=== PATIENT | female | born 1995 | race Hispanic/Latino ===

== ENCOUNTER 2018-05-27 13:51 | Day surgery (SDC) | payer OTHER ==
[2018-05-27 14:26] VITALS: BMI 46.6
--- NOTE | 2018-05-27 15:58 | PDOC.FPROB ---
FMR OB H&P: HPI - History of Present Illness Chief Complaint: abdominal pain History of Present Illness: This is a 22 yo F @ 23.6wks by LMP/12.6wk sono, presenting with a CC of abdominal pain and decreased FM. The patient noted abdominal pain around 2300. The pain was sharp in nature in the midepigastrium and moved diffusely. The patient notes that the pain lasted about 10-15 min and there was only one episode. The patient began noticing decreased movement around that time. She does endorse movements on exam currently. She denies vision changes, headache, NVD, increased LLE, CTX, chest pain, or SOB. FMR OB H&P: Current - Care : 2 Para: 1 Gestational age: 23.6 - OB Labs Blood type: O RH: positive Antibody Screen: negative HIV: negative RPR: negative HepBsAg: negative Rubella: non-immune Gonorrhea: negative Chlamydia: negative GBS: unknown FMR OB H&P: History - Past Medical History PMH: obesity - Social History Social History: Denies alcohol, tobacco or drug use FMR OB H&P: Medications - Current Home Medications: Medication Instructions Recorded Confirmed Type Pnv No.95/Ferrous Fum/Folic AC 1 tab PO DAILY 05/27/18 05/27/18 History [ Tablet] Allergies/Adverse Reactions: Allergies Allergy/AdvReac Type Severity Reaction Status Date / Time No Known Allergies Allergy Verified 05/27/18 14:21 FMR OB H&P: ROS - Review of Systems General: denies: fever/chills, weight/appetite/sleep changes, night sweats, fatigue Eyes: denies: eye pain, vision changes, double vision, scotomas, floaters ENT: denies: nasal congestion, rhinorrhea Cardiovascular: denies: chest pain, palpitation, edema Respiratory: denies: cough, congestion, shortness of breath Gastrointestinal: reports: abdominal pain. denies: bloating, cramping, nausea, vomiting, diarrhea, constipation Genitourinary (Female): denies: incontinence, dysuria, hematuria Musculoskeletal: denies: pain, stiffness, tenderness Integumentary: denies: itching, rash, lesions FMR OB H&P: Vital Signs - Heart Tones Baseline: 120 FMR OB H&P: Physical Exam - Physical Exam General: NAD, awake, alert and oriented HEENT: normocephalic and atraumatic, PERRLA, EOMI, MMM, grossly normal vision, grossly normal hearing Neck: supple, FROM Chest: non-tender to palpation Heart: RRR, normal S1/S2, no murmurs/rubs/gallops General: CTAB Abdomen: gravid Musculoskeletal: normal gait and station, pulses present, FROM in all four extremities Skin: no rash Psychiatric: normal mood and affect FMR OB H&P: A/P - Problem List (1) Abdominal pain Status: Acute Code(s): R10.9 - UNSPECIFIED ABDOMINAL PAIN (2) Intrauterine Status: Acute Code(s): Z34.90 - ENCNTR FOR SUPRVSN OF NORMAL , UNSP, UNSP TRIMESTER Disposition: This is a 22 yo @ 23.6wks by LMP/12.6wk sono presenting with abdominal pain. Abdominal Pain - likely 2/2 to musculoskelatal pain - afebrile, not associated with food, no NVD, NTTP, no burning with urination - pain has completely resolved IUP - FM (+) - reactive NST - anatomy scan 5 days ago that showed no concerns but unable to completely visualize all structures; will f/u with [facility] for anatomy scan - Speculum exam difficult to visualize cervix due to body habitus, no pooling of fluid DISPO: Patient will be discharged as NST was reassuring and patient's pain has completely resolved and not returned . Return precautions were discussed including return of abdominal pain, LOF, dec. FM, CTX. All questions asked and answered. Case discussed with Dr. Moran Discussion: Date/Time: 05/27/18 9356 This H&P was discussed with [] and [] who agree with the above documentation and plan. Attending Addendum - Attending Addendum Date/Time: 05/28/18 1052 I personally evaluated the patient and discussed the management with Dr. Shukla/ Jhonny I agree with the History, Examination, Assessment and Plan documented above with any addition or exceptions noted below- 22 yo @ 23 6/7 weeks presented with brief episode of LUQ pain. Lasted 10-15 minutes and stopped. Described as sharp. (+) FM. Denies any LOF. Afebrile VSS. A/P: 1) [place] musculoskeletal pain- now resolved. FHTs 150s. No contractions. D/c home. F/U as scheduled.
== END 2018-05-27 15:57 | disposition home or self-care (01) ==
LOC: L&D/OP 13:51
PROVIDERS: ATTEND Family Medicine
DX: O99.89 Other specified diseases and conditions complicating pregnancy, childbirth and the puerperium (principal); R10.13 Epigastric pain; O36.8120 Decreased fetal movements, second trimester, not applicable or unspecified; Z79.899 Other long term (current) drug therapy; Z3A.23 23 weeks gestation of pregnancy

== ENCOUNTER 2018-07-13 16:31 | Day surgery (SDC) | payer OTHER ==
[2018-07-13 17:10] VITALS: BMI 46.6
[2018-07-13 18:47] LABS: Amnisure Test No Membranes Rupture (No Rupture)
[2018-07-13 18:48] LABS: Amnisure Internal Control QC ACCEPTABLE (ACCEPTABLE)
--- NOTE | 2018-07-13 19:12 | PDOC.FPROB ---
FMR OB H&P: HPI - History of Present Illness Chief Complaint: Decreased movement Indentification: 22 year old History of Present Illness: 22 year old at 30.3 wks presents with decreased movement. Patient states she has only felt baby move about 3 times since this morning. She also endorses leaking of clear fluid that she has noted on her panties each time she uses the restroom since 7:00 PM yesterday. She states that it is not associated with discharge or vaginal bleeding. She denies contractions or gush of fluid. Patient denies headache, RUQ pain, scotomas, or edema. Primary Care Physician: DARRELL Herrera FMR OB H&P: Current - Care : 3 Para: 1011 Gestational age: 30.3 wks Due date: 09/18/2018 Dating Criteria: LMP/12.6 wk sono - OB Labs Blood type: O RH: positive Antibody Screen: negative HIV: negative RPR: negative HepBsAg: negative Rubella: non-immune Gonorrhea: negative Chlamydia: negative Pap Smear: LSIL 1 hour gtt: 188 GBS: unknown FMR OB H&P: History - Past Medical History PMH: None - OB History OB History: Failed 1h GTT, has not done 3h GTT yet - Surgical History Sx History: None - Social History Social History: Denies alcohol, tobacco, or drug use - Family History Family History: Noncontributory FMR OB H&P: Medications - Current Home Medications: Medication Instructions Recorded Confirmed Type Pnv No.95/Ferrous Fum/Folic AC 1 tab PO DAILY 05/27/18 07/13/18 History [ Tablet] metroNIDAZOLE [Flagyl] 500 mg PO Q12HR 7 Days #14 tab 07/13/18 Rx Allergies/Adverse Reactions: Allergies Allergy/AdvReac Type Severity Reaction Status Date / Time No Known Allergies Allergy Verified 07/13/18 17:12 FMR OB H&P: ROS - Review of Systems General: denies: fever/chills, fatigue Eyes: denies: vision changes, scotomas ENT: denies: nasal congestion, rhinorrhea, sore throat Cardiovascular: denies: chest pain, palpitation, edema Respiratory: denies: cough, congestion, shortness of breath Gastrointestinal: denies: abdominal pain, nausea, vomiting, diarrhea, constipation Genitourinary (Female): reports: polyuria. denies: dysuria, vaginal discharge, vaginal pain, vaginal bleeding, contractions, vaginal pressure Musculoskeletal: denies: pain Neurologic: denies: numbness, seizures, weakness, loss of counsciousness Hematologic/Lymphatic: denies: prolonged or excessive bleeding Psychological: denies: depression, anxiety FMR OB H&P: Vital Signs - Heart Tones Baseline: 130 Variability: moderate Acceleration: present Deceleration: absent Category: category 1 [place] contractions every: None FMR OB H&P: Physical Exam - Physical Exam General: NAD, awake, alert and oriented HEENT: MMM, grossly normal vision, grossly normal hearing Neck: supple Heart: pulses present, no edema General: no respiratory distress, no retractions Abdomen: soft, gravid, non-tender Musculoskeletal: normal gait and station, pulses present Neurological: no tremor, no focal deficit Skin: no rash, capillary refill <2 seconds Lymphatic: no unusual bruising or bleeding Psychiatric: intact recent and remote memory, good judgement and insight, normal mood and affect - Pelvic Exam Vulva: no masses, no lesions, no discharge, no blood, normal rugae Cervix: no masses, no lesions, no blood Deviation from normal: No pooling of fluid, white vaginal discharge noted in vaginal canal SVE: Closed/thick/high FMR OB H&P: Results - Labs Lab results: Laboratory Results - last 24 hr 07/13/18 18:24 Amnio Swab Test No Membranes Rupture FMR OB H&P: A/P - Problem List (1) Decreased movement Status: Acute Code(s): O36.8190 - DECREASED MOVEMENTS, UNSP TRIMESTER, UNSP Qualifiers: Trimester: third trimester (2) Intrauterine Status: Acute Code(s): Z34.90 - ENCNTR FOR SUPRVSN OF NORMAL , UNSP, UNSP TRIMESTER Assessment and Plan: 22 year old at 30.3 wks 1. Decreased movement - NST reactive and reassuring. Patient noting movement which is documented by her pushing on button when movement occurs 2. Leaking of fluid - No pooling of fluid on sterile speculum exam - Amnisure negative - No contractions on monitor - Cervical check: closed, thick, and high, mid-position - VP3 pending, will notify patient of results and treat as appropriate 2. sIUP - See plan as above 3. Abnormal 1h GTT - Advised patient of importance of getting 3h GTT done - Patient states she will go to clinic on Sunday to get lab slip; she voiced her understanding of the necessity of getting this done. 4. Rubella non-immune - Will need vaccine PP Disposition: Stable. D/c home. Will call with results of VP3 and treat as appropriate. Discussion: Date/Time: 07/13/181906 This H&P was discussed with Dr. Chu who agrees with the above documentation and plan. Signature: Sharon Davalos, DO PGY-2
--- NOTE | 2018-07-13 20:03 | PDOC.LDHP ---
Labor and Delivery H&P Chief complaint: decreased movement Allergies/Adverse Reactions: Allergies Allergy/AdvReac Type Severity Reaction Status Date / Time No Known Allergies Allergy Verified 07/13/18 17:12
--- NOTE | 2018-07-14 03:43 | PDOC.EVN ---
Event Note - Event Note Event Note: Patient notified of positive trichomonas on VP3. Flagyl rx sent to pharmacy. Advised patient that she would need to follow up in clinic to have GC/CT testing done as trichomonas is an STD. Advised patient that her partner would also need to be treated and to refrain from sexual intercourse until both had negative NIC.
== END 2018-07-13 19:10 | disposition home or self-care (01) ==
LOC: L&D/OP 16:31
PROVIDERS: ATTEND Family Medicine
DX: O36.8130 Decreased fetal movements, third trimester, not applicable or unspecified (principal); O98.513 Other viral diseases complicating pregnancy, third trimester; Z3A.30 30 weeks gestation of pregnancy
CPT/HCPCS: 84112; 87480; 87510; 87660; 99285

== ENCOUNTER 2018-09-11 08:28 | Inpatient (IN) | payer OTHER ==
--- NOTE | 2018-09-09 15:26 | PDOC.FPROB ---
FMR OB H&P: HPI - History of Present Illness Chief Complaint: rLTCS History of Present Illness: 22 yo @ 39.0 wk by LMP/12.6 wk US. Presents for rLTCS. Primary Care Physician: Sharon FMR OB H&P: Current - Care : 3 Para: 1011 Gestational age: 39.0 Due date: 09/18/18 Dating Criteria: LMP/12/6 wk US Total weight gain: 26 lbs Course/Complications: Obesity affecting , glucose intolerance, rubella non-immune, anemia of , - OB Labs Blood type: O RH: positive Antibody Screen: negative HIV: negative RPR: negative HepBsAg: negative Rubella: non-immune Quad screen: negative Urine drug screen: not done Gonorrhea: negative Chlamydia: negative Pap Smear: NILM, Hx LSIL in 07/2017 1 hour gtt: 188 3 hour GTT: 78, 193, 140, 123 GBS: negative H&H: 9.4/28.7 Platelets: 214 - First Trimester Ultrasound First trimester: No abnormalities, - Anatomy Survey Anatomy survey: suboptimal view LOVT. echo ordered by [facility] but no records available. - Additional Ultrasound Additional: growth scans appropriate. Normal testing. FMR OB H&P: History - Past Medical History PMH: obesity. - OB History OB History: term IUP primary c/s for failure to progress. 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 - Surgical History Sx History: LTCS x1. - Social History Social History: no tobacco, alcohol, or illicit drug use during . - Family History Family History: unremarkable. FMR OB H&P: Medications - Current Home Medications: Medication Instructions Recorded Confirmed Type Pnv No.95/Ferrous Fum/Folic AC 1 tab PO DAILY 05/27/18 09/11/18 History [ Tablet] Ferrous Sulfate 325 mg PO BID 09/09/18 09/09/18 History Allergies/Adverse Reactions: Allergies Allergy/AdvReac Type Severity Reaction Status Date / Time No Known Allergies Allergy Verified 07/13/18 17:12 FMR OB H&P: ROS - Review of Systems General: denies: fever/chills, weight/appetite/sleep changes Eyes: denies: eye pain, vision changes ENT: denies: nasal congestion, rhinorrhea Cardiovascular: denies: chest pain, palpitation Respiratory: denies: cough, congestion Gastrointestinal: denies: abdominal pain, constipation Genitourinary (Female): denies: incontinence, vaginal bleeding Musculoskeletal: denies: pain, stiffness Neurologic: denies: numbness, syncope Integumentary: denies: itching, rash Breast: denies: lumps, bumps Endocrine: denies: cold intolerance, heat intolerance Hematologic/Lymphatic: denies: prolonged or excessive bleeding, enlarged lymph nodes Psychological: denies: depression, anxiety FMR OB H&P: Vital Signs - Maternal Vital signs: 134/76, pulse 88 - Heart Tones Baseline: 150 Variability: moderate Acceleration: absent Deceleration: absent Category: category 1 FMR OB H&P: Physical Exam - Physical Exam General: NAD, awake, alert and oriented HEENT: normocephalic and atraumatic, no scleral icterus Neck: supple, FROM Heart: RRR, normal S1/S2 General: CTAB, no respiratory distress Abdomen: soft, gravid, non-tender Musculoskeletal: normal gait and station, no misalignment/asymmetry Neurological: cranial nerves II through XII intact Skin: no rash, good tugor Lymphatic: no unusual bruising or bleeding, no purpura Psychiatric: intact recent and remote memory, good judgement and insight - Pelvic Exam SVE: deferred Membranes: intact Presentation: vertex Estimated Weight: 8 lbs FMR OB H&P: Results - Labs Lab results: Hemoglobin 9.9, platelets 238 FMR OB H&P: A/P - Problem List (1) Intrauterine Current Visit: No Status: Acute Code(s): Z34.90 - ENCNTR FOR SUPRVSN OF NORMAL , UNSP, UNSP TRIMESTER Assessment and Plan: at 39.0 wk presents for repeat C/S. Consent signed. All questions answered. Will give Ancef 2g IV prior to case. Agrees to proceed with C/S. (2) Previous section Current Visit: Yes Status: Acute Code(s): Z98.891 - HISTORY OF UTERINE SCAR FROM PREVIOUS SURGERY (3) Glucose intolerance Current Visit: Yes Status: Acute Code(s): E74.39 - OTHER DISORDERS OF INTESTINAL CARBOHYDRATE ABSORPTION Assessment and Plan: monitor glucose. (4) Morbid obesity Current Visit: No Status: Acute Code(s): E66.01 - MORBID (SEVERE) OBESITY DUE TO EXCESS CALORIES Discussion: Date/Time: 09/09/18 1524 This H&P was discussed with Dr. Chu who agree with the above documentation and plan.
[~2018-09-11 08:28] MED LIST: Bicitra 30 ML UDCUP PO SCH; CEFAZOLIN/Water 2 GM/20 ML SYRINGE SLOW IVP SCH; Docusate 100 MG CAP PO PRN; Ondansetron PF 4 MG/2 ML Vial IVP PRN; Promethazine HCl 25 MG/ML VIAL IM PRN
[2018-09-11] MEDS ORDERED: ePHEDrine/0.9% NaCl/PF SYRINGE 50 mg/10 ml ONE (09:09)
[2018-09-11] MEDS ORDERED: Oxytocin 10 UNITS/ML VIAL ONE ×2 (09:09→13:11)
[2018-09-11] MEDS ORDERED: Morphine PF 1 MG/ML SYR ONE (09:10)
[2018-09-11] MEDS ORDERED: Ondansetron PF 4 MG/2 ML Vial ONE (09:10)
[2018-09-11] MEDS ORDERED: Ketorolac Tromethamine 30 MG/ML VIAL ONE (09:11)
[2018-09-11] MEDS ORDERED: CEFAZOLIN 2 GM/50 ML-DEXTROSE 2 GM in Premix Bag 1 BAG IVPB SCH (09:15)
[2018-09-11 09:27] VITALS: BMI 49.1
[2018-09-11 10:28] LABS: Hemoglobin 9.9 g/dL (12.0-16.0); Mean Corpuscular HGB CONC 31.8 g/dL (32.0-36.0); Mean Corpuscular Volume 72.3 fL (78.0-98.0); Mean Platelet Volume 8.2 fL (7.4-10.4); Platelet Count 238 thou/uL (130-400); Red Blood Cell (RBC) Count 4.32 mill/uL (4.20-5.40); White Blood Cell (WBC) Count 10.5 thou/uL (4.8-10.8)
[2018-09-11 11:10] LABS: HBSAg Index 0.21 S/CO (0-0.99); Hep B Surf Ag Non-Reactive S/CO (NonReactive); Syphilis Antibody Nonreactive (Nonreactive); Syphilis Antibody Index 0.02 S/CO (<1.00 Non-Reactive)
[2018-09-11] MEDS ORDERED: Ketorolac Tromethamine 30 MG/ML VIAL IVP PRN (13:33)
[2018-09-11] MEDS ORDERED: Ondansetron PF 4 MG/2 ML Vial IVP PRN (13:33)
[2018-09-11] MEDS ORDERED: Promethazine HCl 25 MG/ML VIAL IM PRN (13:33)
[2018-09-11] MEDS ORDERED: Ondansetron HCl/PF 4 MG/2 ML Vial IVP PRN (13:33)
[2018-09-11] MEDS ORDERED: HYDROmorphone 2 MG/ML VIAL SLOW IVP PRN (13:33)
[2018-09-11] MEDS ORDERED: L&D-Morphine 4 MG/ML VIAL SLOW IVP PRN (13:33)
[2018-09-11] MEDS ORDERED: Eucerin (Mineral Oil/Petrolatum,White) 30 gm Jar TOP PRN (13:33)
[2018-09-11] MEDS ORDERED: Meperidine HCl/PF 25 MG/ML VIAL SLOW IVP PRN (13:33)
[2018-09-11] MEDS ORDERED: Promethazine HCl 25 MG SUPP PR PRN (13:33)
[2018-09-11] MEDS ORDERED: Naloxone HCl 0.4 mg/ml Vial IVP PRN ×2 (13:33)
[2018-09-11] MEDS ORDERED: diphenhydrAMINE 50 MG/ML VIAL IVP PRN (13:33)
[2018-09-11] MEDS ORDERED: Naloxone HCl 0.4 mg/ml Vial IV PRN (13:33)
[2018-09-11] MEDS ORDERED: Communication Order-Pharmacy FS SCH (13:45)
[2018-09-11] MEDS ORDERED: NS / Oxytocin 40 units/1000ml 1,000 ML ONE (16:56)
[2018-09-11] MEDS ORDERED: Bisacodyl 10 MG SUPP PR PRN (17:20)
[2018-09-11] MEDS ORDERED: Simethicone Chewable 80 MG TAB PO PRN (17:20)
[2018-09-11] MEDS ORDERED: NS / Oxytocin 40 units/1000ml 1,000 ML IV SCH (17:20)
[2018-09-11] MEDS ORDERED: Methylergonovine 0.2 MG/ML VIAL IM PRN (17:20)
[2018-09-11] MEDS: Lactated Ringer's 1,000 ML IV SCH (17:43)
--- NOTE | 2018-09-11 21:19 | OP ---
DATE OF PROCEDURE: 09/11/2018 RESIDENT SURGEON: Tevin Herrera MD ASSISTING SURGEONS: 1. Eren Rawls DO. 2. Mary Kay Jacome MD. ATTENDING SURGEON: Arthur Chu MD PREOPERATIVE DIAGNOSES: 1. Term intrauterine at 39.0 weeks. 2. Prior section x1. 3. Rubella nonimmune. 4. Obesity. 5. Anemia of . 6. Glucose intolerance. POSTOPERATIVE DIAGNOSES: 1. Term intrauterine , delivered. 2. Prior section x1. 3. Rubella nonimmune. 4. Obesity. 5. Anemia of . 6. Glucose intolerance. PROCEDURE PERFORMED: . ANESTHESIA: Spinal. QUANTITATIVE BLOOD LOSS: 608 mL. CUT TIME: 1235 hours. TIME OF DELIVERY: 1245 hours. INDICATIONS: Ms. Barrientos is a 22-year-old 1, para 1-0-1-1 at 39.0 weeks dated by her last menstrual period consistent with a 12.6 week ultrasound. She presented for a repeat low-transverse section. DESCRIPTION OF PROCEDURE: Risks, benefits, and alternatives were explained to the patient, after which she provided informed consent. Prior to arriving at the OR, she received 2 g of IV Cefazolin. She was taken to the OR and spinal anesthesia was initiated. She was placed in the supine position, and prepped and draped in the usual sterile fashion. A Pfannenstiel incision was made and was carried down the level of the fascia, which was sharply nicked. Overlying subcutaneous fat was dissected away from the fascia. The fascial incision was extended in the superolateral fashion using curved Navarro scissors. Superior and inferior edges of the fascia were then elevated from the rectus muscles, which were then bluntly and sharply dissected away. The rectus muscles and peritoneum were entered bluntly and retracted manually. The lower edge of the peritoneum was taken down using Bovie, ensuring that no bladder was entrapped in this tissue. An Norbert O retractor was then placed and adequate visualization of the lower uterine segment was found. There were noted to be mild adhesions from a previous bladder flap noted along the lower segment, which were dissected away. A clean scalpel was used to make a lower uterine segment score. This was carried down in the midline with the scalpel. The uterine cavity was then entered digitally and the hysterotomy was extended in the caudocranial fashion. membranes were then ruptured using an Allis clamp and clear fluid was noticed. At this time, a lower end of the placenta was noted to be protruding from the hysterotomy. The was noted to be vertex in the right occiput transverse position. Three attempts were made to manually elevate the 's head, however, it was not able to be delivered through the hysterotomy. After three failed attempts, a vacuum was brought to the sterile field and placed on the flexion point. The vacuum was brought up to the green level by a standing nurse. Two pop-offs occurred with the infant successfully delivered on the 3rd attempt. No cephalohematoma was noted at this time. The cord was immediately cut and clamped, and the was taken to the awaiting [place] Resuscitative Team. The child did not require any resuscitative measures other than stimulation. Cord gas pH was 7.25 at the time of delivery. Cord blood was also obtained. The placenta was then expelled using fundal massage. The uterus was externalized and was curetted, cleaned with a dry laparotomy sponge. Hysterotomy was closed using a 1-0 Monocryl in the running locking fashion. A subsequent imbricating layer was placed over the hysterotomy using 1-0 Monocryl. The uterus was then re-internalized and both apices were inspected and noted to be hemostatic. Norbert O retractor was then removed. The rectus muscles and subcutaneous area and fascia were inspected and all areas of bleeding were cauterized using the Bovie. Fascia was then reapproximated using a 0 Vicryl in the running non-locking fashion. Subcutaneous tissue was then irrigated using sterile saline. Subcutaneous fat layer was closed with a running nonlocking 3-0 plain gut. Skin was reapproximated using 4-0 Monocryl with Dermabond placed over the top of the incision. Counts were correct x3. The patient tolerated the procedure well and went to the unit after routine recovery and care. Vital signs were stable throughout the entire procedure. FINDINGS: 1. Grossly normal viable male infant with Apgars of 8 and 9 in 1 and 5 minutes respectively. 2. Grossly normal placenta with 3-vessel cord discarded. 3. Ji catheter draining with approximately 400 mL of clear urine. 4. Minimal abdominal adhesions. Dr. Chu was present for the entire procedure. Job ID: [id number]
[2018-09-12] MEDS: Lactated Ringer's 1,000 ML IV SCH (00:58)
[2018-09-12] MEDS ORDERED: HYDROcodone/Acetaminophen 5/325 mg Tablet PO PRN (01:45)
[2018-09-12] MEDS: Docusate Calcium (SURFAK) 240 MG CAP PO SCH ×3 (03:27→20:09)
[2018-09-12] MEDS: Ferrous Sulfate 325 MG TAB PO SCH ×3 (03:27→20:09)
--- NOTE | 2018-09-12 07:19 | PDOC.PP ---
Post Progress Note Post Day #: 1 Subjective: 22 yo F rLTCS pp day 1. Pt reports pain is well controlled. She is drinking well , but has not had a meal yet. Vernon removed yesterday, pt has not ambulated yet. Reports passing flatus, no BM or micturation after vernon removal. PO intake tolerated: yes Flatus: yes Ambulation: no Vital Signs (12 hours) Temp Pulse Resp BP Pulse Ox 09/12/18 03:45 98.4 F 99 18 111/58 L 09/12/18 00:30 98.2 F 95 18 106/57 L 09/11/18 22:00 18 09/11/18 20:29 98.4 F 88 16 127/63 95 09/11/18 20:00 98.4 F 88 16 127/63 95 Weight Weight 117.934 kg - Physical Examination General: NAD Cardiovascular: no m/r/g, RRR Respiratory: clear to auscultation bilaterally, non-labored breathing Abdominal: + bowel sounds, no distention, appropriately TTP Neurological: no gross focal deficits Psychiatric: normal affect Result Diagrams: 09/11/18 10:15 Additional Labs: Post Labs Blood Type O POSITIVE 09/11/18 10:15 Hep Bs Antigen Non-Reactive S/CO (NonReactive) 09/11/18 10:15 (1) S/P repeat low transverse Code(s): Z98.891 - HISTORY OF UTERINE SCAR FROM PREVIOUS SURGERY Status: Acute - Assessment/Plan 1) s/p rLTCS - plan for continued obs today - encourage ambulation - monitor Is/Os - cont pain control Dispo: stable, will cont to monitor on PP and encourage ambulation today. Possible DC to home tomorrow vs sunday.
[2018-09-12 07:32] LABS: Hemoglobin 7.5 g/dL (12.0-16.0); Mean Corpuscular HGB CONC 31.8 g/dL (32.0-36.0); Mean Corpuscular Hemoglobin 22.6 pg (27.0-31.0); Mean Corpuscular Volume 71.2 fL (78.0-98.0); Mean Platelet Volume 7.9 fL (7.4-10.4); Platelet Count 194 thou/uL (130-400); RBC Distribution Width 17.8 % (11.5-14.5); Red Blood Cell (RBC) Count 3.32 mill/uL (4.20-5.40); White Blood Cell (WBC) Count 12.3 thou/uL (4.8-10.8)
[2018-09-12] MEDS ORDERED: Adacel (T-DAP) 0.5 ML SYRINGE IM ONE (09:00)
[2018-09-12] MEDS ORDERED: Measles/Mumps/Rubella 10 MCG/0.5 ML VIAL SC ONE (09:00)
[2018-09-12] MEDS: HYDROcodone/Acetaminophen 5/325 mg Tablet PO PRN ×3 (09:54→20:09)
[2018-09-12] MEDS: Prenatal Vitamin 1 TAB PO SCH (09:54)
[2018-09-12] MEDS: Ibuprofen 800 MG TAB PO SCH ×2 (14:03→21:11)
[2018-09-13] MEDS: Ibuprofen 800 MG TAB PO SCH ×2 (06:18→13:57)
--- NOTE | 2018-09-13 07:25 | PDOC.PP ---
Post Progress Note Post Day #: 2 Subjective: 22yo now delivered TAGA male by vacuum assisted rLTCS. POD #2. Tolerating PO, ambulating. Pain is well controlled. No questions or concerns. PO intake tolerated: yes Flatus: yes Ambulation: yes Vital Signs (12 hours) Temp Pulse Resp BP BP Pulse Ox 09/13/18 01:20 98.0 F 90 18 120/60 09/12/18 20:12 97.6 F 91 20 110/65 97 Weight Weight 117.934 kg - Physical Examination General: NAD Cardiovascular: no m/r/g, RRR Respiratory: clear to auscultation bilaterally, non-labored breathing Abdominal: + bowel sounds, lochia Skin: CS incision dry & intact Neurological: no gross focal deficits Psychiatric: A&Ox3, normal affect Result Diagrams: 09/12/18 07:09 Additional Labs: Post Labs Blood Type O POSITIVE 09/11/18 10:15 Hep Bs Antigen Non-Reactive S/CO (NonReactive) 09/11/18 10:15 (1) Normal course Code(s): Z39.2 - ENCOUNTER FOR ROUTINE FOLLOW-UP Status: Acute (2) S/P repeat low transverse Code(s): Z98.891 - HISTORY OF UTERINE SCAR FROM PREVIOUS SURGERY Status: Acute - Assessment/Plan 22yo delivered TAGA male at 39.0wks by vacuum assisted rLTCS POD #2 s/p rLTCS - Continue routine PP care - Encourage ambulation - Cont pain control Dispo: Likely home today
[2018-09-13] MEDS: Docusate Calcium (SURFAK) 240 MG CAP PO SCH (09:13)
[2018-09-13] MEDS: Ferrous Sulfate 325 MG TAB PO SCH (09:13)
[2018-09-13] MEDS: Prenatal Vitamin 1 TAB PO SCH (09:14)
[2018-09-13 11:54] VITALS: BP 130/79; TEMP 98.1
== END 2018-09-13 15:00 | disposition home or self-care (01) | DRG 787 ==
LOC: L&D-LIB 08:48 → L&D 13:47 → 3SW 17:16
PROC: 10D00Z1 Extraction of Products of Conception, Low, Open Approach (ICD-10-PCS; principal; 2018-09-11)
PROC: 10D07Z6 Extraction of Products of Conception, Vacuum, Via Natural or Artificial Opening (ICD-10-PCS; 2018-09-11)
DX: O34.211 Maternal care for low transverse scar from previous cesarean delivery (principal); Z68.42 Body mass index [BMI] 45.0-49.9, adult; O75.82 Onset (spontaneous) of labor after 37 completed weeks of gestation but before 39 completed weeks gestation, with delivery by (planned) cesarean section; Z3A.39 39 weeks gestation of pregnancy; Z37.0 Single live birth; O99.214 Obesity complicating childbirth; O99.02 Anemia complicating childbirth; D64.9 Anemia, unspecified; E74.39 Other disorders of intestinal carbohydrate absorption; O75.89 Other specified complications of labor and delivery; E66.01 Morbid (severe) obesity due to excess calories
CPT/HCPCS: 36415; 51702; 82805; 85027; 86780; 86850; 86900; 86901; 87340; J1200; J1885; J2274; J2405; J2590

== ENCOUNTER 2019-07-14 17:35 | Emergency (ER) | payer OTHER, SELFPAY ==
[2019-07-14] MEDS ORDERED: hydrOXYzine 25 MG TAB ONE (18:41)
[2019-07-15] MEDS ORDERED: diphenhydrAMINE 12.5 MG/5 ML UDCUP ONE (00:06)
== END 2019-07-14 18:55 | disposition home or self-care (01) ==
LOC: ERS 17:35
DX: S00.262A Insect bite (nonvenomous) of left eyelid and periocular area, initial encounter (principal); L30.9 Dermatitis, unspecified; J45.909 Unspecified asthma, uncomplicated; F17.210 Nicotine dependence, cigarettes, uncomplicated; W57.XXXA Bitten or stung by nonvenomous insect and other nonvenomous arthropods, initial encounter
CPT/HCPCS: 99282; Q0163

== ENCOUNTER 2019-08-10 20:14 | Emergency (ER) | payer SELFPAY ==
[2019-08-10] MEDS ORDERED: Acetaminophen 500 MG TAB ONE (20:38)
--- NOTE | 2019-08-10 20:41 | RAD ---
XR Chest 1 View Portable HISTORY: Cough COMPARISON: 05/16/2016 FINDINGS: The heart size is normal. The lungs are well expanded without focal areas of consolidation, pneumothorax or pleural effusions. IMPRESSION: No radiographic evidence of acute cardiopulmonary process.
== END 2019-08-10 21:22 | disposition home or self-care (01) ==
LOC: ERS 20:14
DX: B34.9 Viral infection, unspecified (principal); F17.210 Nicotine dependence, cigarettes, uncomplicated; J45.909 Unspecified asthma, uncomplicated
CPT/HCPCS: 71045; 87804; 94760

== ENCOUNTER 2021-02-05 11:39 | Emergency (ER) | payer SELFPAY | END 2021-02-05 12:38 | disposition home or self-care (01) | LOC: ERS 11:39 | DX: R11.2 Nausea with vomiting, unspecified (principal); R19.7 Diarrhea, unspecified; J45.909 Unspecified asthma, uncomplicated; F17.210 Nicotine dependence, cigarettes, uncomplicated | CPT/HCPCS: 99283 ==

== ENCOUNTER 2023-11-25 07:04 | Emergency (ER) | payer SELFPAY | END 2023-11-25 08:14 | disposition home or self-care (01) | LOC: ERS 07:04 | DX: H60.11 Cellulitis of right external ear (principal); F17.210 Nicotine dependence, cigarettes, uncomplicated | CPT/HCPCS: 99282 ==

== ENCOUNTER 2024-09-17 06:59 | Emergency (ER) | payer SELFPAY ==
[2024-09-17] MEDS ORDERED: Ipratropium/Albuterol 3 ML NEB ONE (07:42)
[2024-09-17] MEDS ORDERED: Dexamethasone 10 MG/ML VIAL ONE (08:36)
== END 2024-09-17 08:51 | disposition home or self-care (01) ==
LOC: ERS 06:59
DX: J45.901 Unspecified asthma with (acute) exacerbation (principal); J06.9 Acute upper respiratory infection, unspecified; F17.210 Nicotine dependence, cigarettes, uncomplicated
CPT/HCPCS: 71045; 87428; J1100; J7620